=== PATIENT | female | born 1995 | race Caucasian/White ===

== ENCOUNTER 2022-09-24 21:53 | Emergency (ER) | payer MEDICAID, OTHER ==
[~2022-09-24] VITALS: Ht 170.2 cm; Wt 52.2 kg
[2022-09-24 23:29] VITALS: BP 114/76
[2022-09-24] MEDS ORDERED: CIPR2.5D14 RIGHTEYE (23:46)
--- NOTE | 2022-09-24 23:47 | NUR ---
Patient discharged to home in stable condition. Written and verbal after care instructions given. Patient verbalizes understanding of instruction.
== END 2022-09-25 00:12 | disposition home or self-care (01) ==
LOC: ER 21:56
DX: H10.11 Acute atopic conjunctivitis, right eye (principal); Z88.2 Allergy status to sulfonamides; Z88.1 Allergy status to other antibiotic agents